=== PATIENT | female | born 1940 | race Caucasian/White ===

== ENCOUNTER → 2018-02-21 | Outpatient (CLI) | payer MEDICARE ==
[~2018-02-21] MED LIST: AMIL5TAB8 PO; ASPI-1005 PO; CHOL50004 PO; DILT240T13 PO; ESCI20TA36 PO; FURO20TA4 PO; HYDR200T82 PO; IOHEXOL-350 50ML VIAL IV ONE; LISI1TAB11 PO; LORA10TA7 PO; METF-444 PO; METH2.5T6 PO; METO-409 PO; PANT40TA25 PO; POTA-79 PO; SIMV10TA6 PO; TRAM50TA4 PO; TRAZ-187 PO; VITA1CAP85 PO; WARF-57 PO; WARF2.5T85 PO
== END | disposition home or self-care (01) ==
LOC: OIH 10:42
PROVIDERS: ATTEND Internal Medicine Gastroenterology
DX: K76.89 Other specified diseases of liver (principal); K57.90 Diverticulosis of intestine, part unspecified, without perforation or abscess without bleeding; K44.9 Diaphragmatic hernia without obstruction or gangrene; Z90.49 Acquired absence of other specified parts of digestive tract; I48.91 Unspecified atrial fibrillation; M06.9 Rheumatoid arthritis, unspecified
CPT/HCPCS: 74178; Q9967

== ENCOUNTER → 2018-10-16 | Outpatient (CLI) | payer MEDICARE ==
[~2018-10-16] MED LIST changes: -IOHEXOL-350 50ML VIAL IV ONE
== END | disposition home or self-care (01) ==
LOC: SHCH 09:57
PROVIDERS: ATTEND Internal Medicine Cardiovascular Disease
DX: I11.9 Hypertensive heart disease without heart failure (principal); I08.2 Rheumatic disorders of both aortic and tricuspid valves
CPT/HCPCS: 93306

== ENCOUNTER → 2018-10-24 | Outpatient (CLI) | payer MEDICARE ==
[~2018-10-24] VITALS: Ht 170.2 cm; Wt 119.3 kg
[~2018-10-24] MED LIST changes: +REGADENOSON 0.4 MG/5 ML PF SYG IVP SCH
== END | disposition home or self-care (01) ==
LOC: SHCH 08:41
PROVIDERS: ATTEND Internal Medicine Cardiovascular Disease
DX: I25.89 Other forms of chronic ischemic heart disease (principal); I20.9 Angina pectoris, unspecified
CPT/HCPCS: 78452; 93017; 96374; A9500 ×2; J2785

== ENCOUNTER 2018-11-20 07:08 | Day surgery (SDC) | payer MEDICARE ==
[2018-11-15 14:34] LABS: BASOPHILS % (AUTO) 0.5 % (0.0-5.0); EOSINOPHILS % (AUTO) 2.5 % (0.0-8.0); HEMATOCRIT 40.2 % (36-48); MEAN CORPUSCULAR HEMOGLOBIN 27.1 pg (27.0-33.0); MEAN CORPUSCULAR HGB CONC 32.3 g/dL (32.0-36.0); MEAN CORPUSCULAR VOLUME 83.7 fL (79-99); MONOCYTES % (AUTO) 7.9 % (3.0-13.0); NEUTROPHILS % (AUTO) 74.1 % (40.0-77.0); PLATELET COUNT (AUTO) 192 K/uL (130-400); WHITE BLOOD COUNT (AUTO) 7.2 K/uL (4.8-10.8)
[2018-11-15 14:37] LABS: APPEARANCE,URINE Cloudy (CLEAR); BILIRUBIN,URINE Negative (NEGATIVE); COLOR,URINE Dark Yellow (YELLOW); GLUCOSE, URINE (UA) Negative (NEGATIVE); KETONES,URINE Negative (NEGATIVE); LEUKOCYTE ESTERASE ,URINE Moderate (NEGATIVE); NITRATE,URINE Positive (NEGATIVE); OCCULT BLOOD,URINE Nonhemolyzed Trace (NEGATIVE); PH,URINE 6.5 (5.0-8.0); PROTEIN,URINE Negative (NEGATIVE)
[2018-11-15 14:45] LABS: CREATININE 1.2 mg/dL (0.5-1.5); POTASSIUM 3.9 mmol/L (3.5-5.1)
[2018-11-15 14:48] LABS: INR 1.75 (0.85-1.15); PARTIAL THROMBOPLASTIN TIME 33.9 SEC (26.3-35.5); PROTHROMBIN TIME 18.2 SEC (9.6-11.6)
[2018-11-15 14:49] LABS: BACTERIA,URINE Moderate /HPF (None Seen)
[2018-11-15 15:19] VITALS: BP 131/73
--- NOTE | 2018-11-17 11:03 | NUR ---
LABS FAXED AND REPORTED ABNORMAL PT/PTT/UA/CHEST XRAY TO DR. YARON MULLER'S AS[facility]. SHE WILL INFORM SERGO MCCULLOUGH OF ABNORMAL LAB.
--- NOTE | 2018-11-17 11:18 | NUR ---
SERGO MORA ON PHONE. NO ORDERS RECEIVED. PROCEED WITH PLANNED PROCEDURE.
[2018-11-20] VITALS (18 sets, daily range): BP systolic 129–151; BP diastolic 51–77
[~2018-11-20] VITALS: Ht 166.4 cm; Wt 121.5 kg
[~2018-11-20 07:08] MED LIST changes: +BUDE10.2 IH; -DILT240T13 PO; +DILT360T14 PO; +ESCI10TA54 PO; -ESCI20TA36 PO; -FURO20TA4 PO; -HYDR200T82 PO; +LEFL20TA18 PO; +LEVO5TAB13 PO; -LISI1TAB11 PO; +LISI1TAB27 PO; -LORA10TA7 PO; -METH2.5T6 PO; -REGADENOSON 0.4 MG/5 ML PF SYG IVP SCH; +TIOT4MIS5 IH; -TRAM50TA4 PO; -TRAZ-187 PO
[2018-11-20] MEDS ORDERED: SODIUM CHLORIDE 0.9% 1000ML 1,000 ML IV ONE (07:22)
--- NOTE | 2018-11-20 08:00 | NUR ---
PROCEDURE PT HERE FOR PROCEDURE. DENIES ANY COMPLAINTS. DAUGHTERS AT BEDSIDE.
[2018-11-20] MEDS ORDERED: IOHEXOL-350 50ML VIAL IV ONE (08:12)
[2018-11-20] MEDS ORDERED: NITROGLYCERIN 5 MG/ML 10 ML VIAL IV ONE (08:12)
[2018-11-20] MEDS ORDERED: IOHEXOL 350 MG/ML 100ML INFUS..BTL IV ONE (08:13)
[2018-11-20] MEDS ORDERED: LIDOCAINE HCL 2% 20ML ONE (08:13)
[2018-11-20] MEDS ORDERED: FENTANYL CITRATE PF 50 MCG/1 ML 2ML VIAL ONE (08:22)
[2018-11-20] MEDS ORDERED: MIDAZOLAM HCL 1 MG/ML 2ML VIAL ONE (08:22)
[2018-11-20] MEDS ORDERED: PHARMACY COMMUNICATION MISC SCH (08:30)
[2018-11-20] MEDS ORDERED: SODIUM CHLORIDE 0.9% 1000ML 1,000 ML IV SCH (09:12)
[2018-11-20] MEDS ORDERED: DEXTROSE 50%-WATER 50 ML DISP.SYRIN IV PRN (09:15)
[2018-11-20] MEDS ORDERED: GLUCAGON 1MG KIT 1 MG ML IM PRN (09:15)
[2018-11-20] MEDS ORDERED: HYDRALAZINE HCL 20 MG/ML VIAL IV PRN (09:15)
[2018-11-20] MEDS ORDERED: NITROGLYCERIN 0.4 MG SL TAB SL PRN (09:15)
--- NOTE | 2018-11-20 09:25 | NUR ---
assessment received pt from hospital laboratory technician. pt lying in bed. 6fr sheath in place to right groin. soft to touch. no bleeding, oozing noted to site. instructed on importance of lying flat in bed and not too move right leg or lift head up off of bed. pt verbalized understanding.
[2018-11-20] MEDS ORDERED: ATROPINE SULFATE 0.1 MG/ML 10 ML SYG IVP ONE (09:42)
[2018-11-20] MEDS ORDERED: INSULIN HUMULIN R 100 UNIT/ML 3ML SQ SCH (11:30)
--- NOTE | 2018-11-20 12:30 | NUR ---
REPORT REPORT GIVEN TO CRYSTAL. SAUNDERS. PT DOING WELL. DENIES ANY PAIN. SITE TO RIGHT GROIN SOFT TO TOUCH. DSTAT IN PLACE. NO BLEEDING, OOZING NOTED TO SITE. BEDREST COMPLETE.
--- NOTE | 2018-11-20 13:30 | NUR ---
DISCHARGE INSTRUCTIONS DISCHARGE INSTRUCTIONS PROVIDED TO PATIENT AND PATIENT'S DAUGHTER. FOLLOW UP APPOINTMENTS PROVIDED AND FEMORAL SITE CARE INSTRUCTIONS PROVIDED, PATIENT AND FAMILY VERBALIZED UNDERSTANDING. ALL QUESTIONS/CONCERNS ADDRESSED. MED LIST PROVIDED AND INSTRUCTED TO RESUME HOME MEDS AND RESUME COUMADIN THIS EVENING.
== END 2018-11-20 14:55 | disposition home or self-care (01) ==
LOC: DAH 07:08
PROVIDERS: ATTEND Internal Medicine Cardiovascular Disease
DX: I25.118 Atherosclerotic heart disease of native coronary artery with other forms of angina pectoris (principal); I10 Essential (primary) hypertension; E78.5 Hyperlipidemia, unspecified; J44.9 Chronic obstructive pulmonary disease, unspecified; E11.51 Type 2 diabetes mellitus with diabetic peripheral angiopathy without gangrene; I48.0 Paroxysmal atrial fibrillation; F32.9 Major depressive disorder, single episode, unspecified; M06.9 Rheumatoid arthritis, unspecified; Z79.01 Long term (current) use of anticoagulants; Z79.899 Other long term (current) drug therapy; Z79.82 Long term (current) use of aspirin; Z90.49 Acquired absence of other specified parts of digestive tract; Z96.652 Presence of left artificial knee joint; Z98.890 Other specified postprocedural states; Z88.1 Allergy status to other antibiotic agents; Z88.8 Allergy status to other drugs, medicaments and biological substances; Z88.5 Allergy status to narcotic agent; Z82.49 Family history of ischemic heart disease and other diseases of the circulatory system; Z83.3 Family history of diabetes mellitus; Z95.818 Presence of other cardiac implants and grafts
CPT/HCPCS: 36415; 71045; 80048; 81001; 82948 ×2; 85025; 85610; 85730; 93005; 93458; A4215; A4216; A4221; A4222; A4223 ×3; A4606; C1894 ×2; J1644; J2250; J3490 ×2; J7030; Q9965; Q9967 ×2; 99156; 99157; J0461; J3010

== ENCOUNTER 2019-01-20 16:37 | Emergency (ER) | payer MEDICARE ==
[~2019-01-20 16:37] MED LIST changes: -LISI1TAB27 PO; +LISI1TAB28 PO
[2019-01-20 17:26] LABS: INR 2.03 (0.85-1.15); PARTIAL THROMBOPLASTIN TIME 46.7 SEC (26.3-35.5); PROTHROMBIN TIME 20.7 SEC (9.6-11.6)
[2019-01-20 17:27] LABS: BASOPHILS % (AUTO) 0.4 % (0.0-5.0); EOSINOPHILS % (AUTO) 0.5 % (0.0-8.0); HEMATOCRIT 36.2 % (36-48); LYMPHOCYTES % (AUTO) 7.4 % (21.0-51.0); MEAN CORPUSCULAR HEMOGLOBIN 26.2 pg (27.0-33.0); MEAN CORPUSCULAR HGB CONC 32.8 g/dL (32.0-36.0); MEAN CORPUSCULAR VOLUME 79.8 fL (79-99); MONOCYTES % (AUTO) 6.1 % (3.0-13.0); NEUTROPHILS % (AUTO) 85.6 % (40.0-77.0); PLATELET COUNT (AUTO) 290 K/uL (130-400); RED BLOOD CELL COUNT(AUTO) 4.53 MIL/uL (4.00-5.50); RED CELL DISTRIBUTION WIDTH 15.2 % (11.0-15.5); WHITE BLOOD COUNT (AUTO) 15.5 K/uL (4.8-10.8)
[2019-01-20 17:31] LABS: CREATININE 1.2 mg/dL (0.5-1.5); POTASSIUM 4.4 mmol/L (3.5-5.1)
[2019-01-20 17:35] LABS: ALBUMIN 2.9 g/dL (3.5-5.0); BILIRUBIN,TOTAL 0.8 mg/dL (0.2-1.0); TOTAL PROTEIN, SERUM 7.6 g/dL (6.0-8.3)
[2019-01-20 17:51] LABS: B-TYPE NATRIURETIC PEPTIDE 268 pg/mL (0-100)
[2019-01-20 18:33] LABS: APPEARANCE,URINE Clear (CLEAR); BILIRUBIN,URINE Negative (NEGATIVE); COLOR,URINE Dark Yellow (YELLOW); GLUCOSE, URINE (UA) Negative (NEGATIVE); KETONES,URINE Negative (NEGATIVE); LEUKOCYTE ESTERASE ,URINE Small (NEGATIVE); NITRATE,URINE Positive (NEGATIVE); OCCULT BLOOD,URINE Negative (NEGATIVE); PROTEIN,URINE Negative (NEGATIVE); UROBILINOGEN,URINE 0.2 mg/dL (0.2-1.0)
[2019-01-20 18:52] LABS: BACTERIA,URINE Moderate /HPF (None Seen); RBC,URINE 0-1 /HPF (0-1); SQUAMOUS EPITHELIAL CELL,UR Few /HPF (0-2)
== END 2019-01-20 21:10 | disposition short-term general hospital (02) ==
LOC: EDH 16:37
DX: I62.01 Nontraumatic acute subdural hemorrhage (principal); I48.91 Unspecified atrial fibrillation; I48.92 Unspecified atrial flutter; J44.9 Chronic obstructive pulmonary disease, unspecified; I10 Essential (primary) hypertension; I25.10 Atherosclerotic heart disease of native coronary artery without angina pectoris; E78.5 Hyperlipidemia, unspecified; Z88.1 Allergy status to other antibiotic agents; Z88.5 Allergy status to narcotic agent; Z90.49 Acquired absence of other specified parts of digestive tract; Z96.652 Presence of left artificial knee joint
CPT/HCPCS: 36415; 70450; 71045; 80053; 81001; 82140; 82550; 83605; 83880; 84484; 85025; 85610; 85730; 87040; 93005

== ENCOUNTER → 2020-06-27 | Outpatient (CLI) | payer MEDICARE ==
[~2020-06-27] MED LIST changes: +ESCI-8 PO; -ESCI10TA54 PO; -LISI1TAB28 PO; +LISI1TAB51 PO; -PANT40TA25 PO; +PANT40TA54 PO; -SIMV10TA6 PO; +SIMV10TA97 PO
== END | disposition home or self-care (01) ==
LOC: RAH 12:13
PROVIDERS: ATTEND Obstetrics & Gynecology
DX: Z12.31 Encounter for screening mammogram for malignant neoplasm of breast (principal)
CPT/HCPCS: 77067

== ENCOUNTER → 2021-03-31 | Outpatient (CLI) | payer MEDICARE | END | disposition home or self-care (01) | LOC: SHCH 08:33 | PROVIDERS: ATTEND Internal Medicine Cardiovascular Disease | DX: I08.1 Rheumatic disorders of both mitral and tricuspid valves (principal); I11.9 Hypertensive heart disease without heart failure; E11.9 Type 2 diabetes mellitus without complications; E78.5 Hyperlipidemia, unspecified; I87.2 Venous insufficiency (chronic) (peripheral) | CPT/HCPCS: 93306; 93356; 93970 ==

== ENCOUNTER → 2021-09-30 | Outpatient (CLI) | payer MEDICARE ==
[2021-09-30 12:32] LABS: POTASSIUM 3.7 mmol/L (3.5-5.1)
== END | disposition home or self-care (01) ==
LOC: LAB 11:28
PROVIDERS: ATTEND Internal Medicine Cardiovascular Disease
DX: I50.22 Chronic systolic (congestive) heart failure (principal)
CPT/HCPCS: 36415; 80048; 83880